=== PATIENT | female | born 1950 | race Caucasian/White ===

== ENCOUNTER → 2017-11-11 | Outpatient (CLI) | payer OTHER ==
[~2017-11-11] MED LIST: ALBUAER2 INH; ALPR-411 PO; AMB10 PO; ASCA500 PO; CHOL100010 PO; CYM30 PO; ENOX40IN SQ; ESTR0.3T PO; EZET10TA63 PO; FRS/40 PO; HYDR-5688 PO; OXYC-57 PO; OXYSR10 PO; OXYSR20 PO; RANI300T2 PO; SYN50 PO; VALA500T60 PO; XYZAL PO
[2017-11-11 09:33] LABS: BASO % 0.2 %; BASO ABS # 0.02 K/uL (0-0.2); EOS % 0.3 %; EOS ABS # 0.03 K/uL (0-0.5); HEMATOCRIT 40.4 % (37-47); HEMOGLOBIN 13.1 g/dL (12.0-16.0); IG# 0.02 K/uL (0.00-0.02); LYMPH % 10.8 %; LYMPH ABS # 1.22 K/uL (1.2-3.4); MEAN CELL VOLUME 87.4 fL (80-100); MEAN CORPUSCULAR HEMOGLOBIN 28.4 pg (25-34); MEAN CORPUSCULAR HGB CONC 32.4 g/dl (32-36); MEAN PLATELET VOLUME 10.2 fL (7.4-10.4); MONO % 11.2 %; MONO ABS # 1.26 K/uL (0.11-0.59); NEUT % 77.3 %; PLATELET COUNT 242 K/uL (130-400); RED CELL DISTRIBUTION WIDTH CV 14.7 % (11.5-14.5); RED CELL DISTRIBUTION WIDTH SD 47.5 fL (36.4-46.3); WHITE BLOOD COUNT 11.25 K/uL (4.8-10.8)
--- NOTE | 2017-11-11 13:10 | DIAGNOSTIC IMAGING REPORT ---
BONE SCAN 3 PHASE LIMITED CLINICAL HISTORY: PAIN/SWELLING S/P TKA. Bilateral knee pain. COMPARISON STUDY: Right tibia/fibula 05/20/2011. FINDINGS: There is periprosthetic radiotracer uptake within the lateral aspect of the right proximal tibia. This is present in all 3 phases of the bone scan. No abnormal radiotracer uptake within the left knee. IMPRESSION: Positive three-phase radiotracer uptake within the lateral aspect of the right proximal tibia. This is concerning for infection. Electronically signed by: Raghavendra Crystal M.D. 11/11/2017 1:09 PM Dictated Date/Time: 11/11/2017 1:07 PM
== END | disposition home or self-care (01) ==
LOC: C.NUCL 07:38
DX: Z96.651 Presence of right artificial knee joint (principal)

== ENCOUNTER → 2017-11-14 | Outpatient (CLI) | payer OTHER | END | disposition home or self-care (01) | LOC: C.LABSPEC 11:06 | DX: T84.018D Broken internal joint prosthesis, other site, subsequent encounter (principal); X58.XXXD Exposure to other specified factors, subsequent encounter ==

== ENCOUNTER → 2017-12-01 | Outpatient (CLI) | payer OTHER | END | disposition home or self-care (01) | LOC: C.LAB1850 11:19 | PROVIDERS: ATTEND Internal Medicine Infectious Disease | DX: L03.90 Cellulitis, unspecified (principal) ==